=== PATIENT | male | born 1990 | race Caucasian/White ===

== ENCOUNTER → 2018-10-05 06:11 | Outpatient (CLI) | payer MEDICARE, MEDICAID, SELFPAY ==
--- NOTE | 2018-10-05 06:46 | MRI_ITS ---
STUDY: MRI LUMBAR SPINE WITHOUT CONTRAST REASON FOR EXAM: Male, 28 years old. sciatica, RADIATES DOWN L LEG TECHNIQUE: Standardized fat and water weighted pulse sequences were obtained in the sagittal and axial planes. COMPARISON: May 01, 2010 FINDINGS: T12-L1: Normal endplates. Normal disc height, hydration and morphology. Normal bilateral facet joints. Normal central canal and bilateral lateral recesses. Normal bilateral intervertebral neural foramina. Normal lumbar lordosis. There is no substantial scoliosis. Normal conus medullaris that terminates at the L1 L1-2: There is minimal disc space narrowing and endplate spondylosis. There is no significant disc herniation, central canal or foraminal stenosis. L2-3: Normal endplates. Normal disc height, hydration and morphology. Normal bilateral facet joints. Normal central canal and bilateral lateral recesses. Normal bilateral intervertebral neural foramina. L3-4: Normal endplates. Normal disc height, hydration and morphology. Normal bilateral facet joints. Normal central canal and bilateral lateral recesses. Normal bilateral intervertebral neural foramina. L4-5: There is minimal disc space narrowing and endplate spondylosis. There is no significant disc herniation, central canal or foraminal stenosis. L5-S1: There is mild disc space narrowing and endplates spondylosis. There is new left paracentral protrusion with severe left lateral recess narrowing. There is minimal central canal stenosis there is no foraminal stenosis. Normal visualized sacral ala. Normal visualized paraspinous soft tissue structures. MRI/Spine Lumbar (Routine) IMPRESSION: L5/S1: Disc protrusion with severe left lateral recess narrowing. Electronically Signed: Gail Pena MD at 8:07 EST Tel , Service support ,
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
== END ==
PROVIDERS: Family Provider Family Medicine; PCP Family Medicine
DX: M54.32 Sciatica, left side (principal); M51.37 Other intervertebral disc degeneration, lumbosacral region
CPT/HCPCS: 72148

== ENCOUNTER → 2020-06-22 17:17 | Outpatient (CLI) | payer MEDICARE, SELFPAY ==
--- NOTE | 2020-06-22 17:24 | MRI_ITS ---
STUDY: MRI LUMBAR SPINE WITHOUT CONTRAST REASON FOR EXAM: Male, 30 years old. L sciatica pain, h/o prior microdiscectomy, back pain TECHNIQUE: Standardized fat and water weighted pulse sequences were obtained in the sagittal and axial planes. COMPARISON: None FINDINGS: T12-L1: Normal endplates. Normal disc height, hydration and morphology. Normal bilateral facet joints. Normal central canal and bilateral lateral recesses. Normal bilateral intervertebral neural foramina. Normal lumbar lordosis. There is no substantial scoliosis. Normal conus medullaris that terminates at T12-L1 L1-2: Normal endplates. Normal disc height, hydration and morphology. Normal bilateral facet joints. Normal central canal and bilateral lateral recesses. Normal bilateral intervertebral neural foramina. L2-3: Normal endplates. Normal disc height, hydration and morphology. Normal bilateral facet joints. Normal central canal and bilateral lateral recesses. Normal bilateral intervertebral neural foramina. L3-4: Normal endplates. Normal disc height, hydration and minimal annular bulge.. Normal bilateral facet joints. Normal central canal and bilateral lateral recesses. Normal bilateral intervertebral neural foramina. L4-5: Normal endplates. Normal disc height, hydration and minimal annular bulge.. Normal bilateral facet joints. Normal central canal and bilateral lateral recesses. Normal bilateral intervertebral neural foramina. L5-S1: Normal endplates. Normal disc height, desiccation and mild annular bulge with prominent left paracentral/posterolateral disc extrusion with posterior superior extension of disc fragment. Normal bilateral facet joints. Normal central canal. Severe left lateral recess stenosis. Mild bilateral neural foraminal encroachment Normal visualized sacral ala. Normal visualized paraspinous soft tissue structures. MRI/Spine Lumbar (Routine) IMPRESSION: Spinal stenosis at L5-S1 greater on the left secondary to prominent left paracentral/posterolateral disc extrusion. Minimal bulging of the annuli at L3-4 and L4-5 without spinal stenosis Electronically Signed: Johan Contreras MD at 20:00 EDT , Service support ,
== END ==
LOC: MRI 17:19
PROVIDERS: PCP Family Medicine; Referring Provider Anesthesiology Pain Medicine; Visit Provider Anesthesiology Pain Medicine
DX: M54.9 Dorsalgia, unspecified (principal)
CPT/HCPCS: 72148

== ENCOUNTER 2020-08-18 09:24 | Inpatient (IN) | payer MEDICARE, SELFPAY ==
[2020-06-26 11:08] VITALS: BMI 29.7
--- NOTE | 2020-08-10 09:38 | EKG12_ITS ---
Test Reason : PRE OP Blood Pressure : / mmHG Vent. Rate : 075 BPM Atrial Rate : 075 BPM P-R Int : 156 ms QRS Dur : 084 ms QT Int : 366 ms P-R-T Axes : 028 -08 023 degrees QTc Int : 408 ms Normal sinus rhythm with sinus arrhythmia Low voltage QRS Borderline ECG Confirmed by BLAYNE ASH, HAI ([id number]), visual effects editor TESS LUTHER ([id number]) on 08/11/2020 9:09:47 AM Referred By: YASMINE Confirmed By:HAI CISNEROS MD
[2020-08-10 10:17] LABS: Absolute Lymphocyte Count 2.29 X10^3/uL (0.83-4.51); Absolute Neutrophil Count 4.8 X10^3/uL (2.0-7.7); Basophil# 0.04 X10^3/uL; Basophil% 0.5 % (0-1); Eosinophil# 0.32 X10^3/uL; Eosinophils% 3.7 % (0-5); Hematocrit 49.3 % (40-54); Hemoglobin 16.2 g/dL (13.0-16.5); Lymphocyte # 2.29 X10^3/ul (4.0); Lymphocyte % 26.7 % (19-41); Mean Corp Hgb Conc 32.9 g/dL (32-36); Mean Corpuscular Hgb 30.3 pg (27.0-32.0); Mean Corpuscular Volume 92.3 fL (80-94); Mean Platelet Vol. 9.3 fl (6.2-12.0); Monocyte# 1.08 X10^3/uL; Monocyte% 12.6 % (0-10); NRBC Flagged by Analyzer 0 % (0-5); Neutrophil # 4.82 X10^3/uL (2.7-7.7); Neutrophil % 56.3 % (47-70); Platelet Count 299 K/mm3 (150-450); RBC Distribution Width CV 12.8 % (11.6-14.6); RBC Distribution Width SD 43.2 fl (35.1-43.9); Red Blood Count 5.34 M/mm3 (4.6-6.2); White Blood Count 8.6 K/mm3 (4.4-11.0)
[2020-08-10 10:54] LABS: Magnesium 2.5 mg/dL (1.6-2.6)
[2020-08-10 11:03] LABS: Anion Gap 6 (5-15); BUN 14 mg/dL (7-18); BUN/Creat Ratio 12.5 RATIO (10-20); Calcium,Total 8.9 mg/dL (8.5-10.1); Chloride 106 mmol/L (98-107); Creatinine, Serum 1.12 mg/dL (0.70-1.30); EST Glomerular Filtration Rate 81 mL/min (>60); Est Glom Filt Rate - Afr Amer 98 mL/min (>60); Glucose 60 mg/dL (74-106); Potassium 3.7 mmol/L (3.5-5.1); Sodium Level 141 mmol/L (136-145)
[2020-08-10 11:25] LABS: HIV - WCH Non-Reactive (Nonreactive)
[2020-08-11 08:17] LABS: HEPATITIS B SURFACE AG Negative (Negative); Hepatitis A AB, Total Negative (Negative); Hepatitis A IgM Antibody Negative (Negative); Hepatitis B Core AB IgM Negative (Negative); Hepatitis B Core Ab Total Negative (Negative); Hepatitis C Ab <0.1 s/co ratio (0.0-0.9)
[2020-08-11 18:20] LABS: Hep B Surface Antibodies Reactive (.)
[2020-08-18] VITALS (9 sets, daily range): BP systolic 108–134; BP diastolic 68–90; PULSE 56–86; RESP 14–18; TEMP 36–36.9; O2SAT 95–100; BMI 30.7; BMI 30.6
[2020-08-18] MEDS: Acetaminophen 500 MG Tablet 1000 MG PO (10:13)
[2020-08-18] MEDS: Lactated Ringers 1,000 ML 100 ML IV ×2 (10:15→22:00)
[2020-08-18 10:25] LABS: Bedside Glucose 148 mg/dL (70-110)
--- NOTE | 2020-08-18 11:31 | PCM.HP.STD ---
History of Present Illness Date of Admission: 08/18/20 Intake Intake Visit Reasons: low back Accompanied by: Self Is patient in pain?: Yes Pain scale (1-10): 6 Allergies venom-honey bee Allergy (Severe, Verified 08/10/20 08:05) Anaphylaxis fentanyl Allergy (Verified 08/10/20 08:05) Hives ketorolac [From Toradol] Allergy (Verified 08/10/20 08:05) Hives Medications clonazepam 0.5 mg tablet 0.5 mg PO PRN PRN 06/26/20 [History Confirmed 08/10/20] famotidine 20 mg tablet 20 mg PO DAILY 06/26/20 [History Confirmed 08/10/20] hydrocodone 5 mg-acetaminophen 325 mg tablet 1 ea PO BID 06/26/20 [History Confirmed 08/10/20] PFSH Medical History Rotator cuff arthropathy of right shoulder (Acute) h/o appendectomy (Acute) h/o face surgery (Acute) h/o jaw surgery (Acute) h/o left femur tracy (Acute) Surgical History H/O eye surgery (Acute) H/O hernia repair (Acute) H/O left knee surgery (Acute) H/O microdiscectomy (Acute) Family History Sister Cancer Uncle Cancer Grandmother Diabetes Social History (Updated 08/10/20 @ 08:[address] Nikita Coulter, DO) household members: other details: mother number of children: 1 Smoking Status: Former smoker alcohol intake: never what type of physical activity do you participate in: bicycling do you feel safe at home: Yes HPI low back: Details: Ramon returns for his preop prior to his surgery next Monday. That is 8 days from now. with a repeat laminectomy at the L5-S1 level on the left side He knows that he is scheduled for 360 degree fusion where he has recurrent disc herniation. how many days he would be in the hospital etc. I explained the surgery with him at length including what to expect We spoke of possible risks and complications of moderate among those possibility of coma paralysis infection meningitis failure to relieve the symptoms blood clot in the legs blood clot in the lungs microinfarction stroke damage to major vessels damage to viscus structures in the abdomen retrograde ejaculation damage to ureters among others he understood all possible risks and complications he voluntarily signed the operative permit.Parts of this documentation were recorded by a scribe, this documentation accurately reflects the service provided and the decisions made by me, Dr. Nikita Coulter, DO 08/10/20 0803. RAMON GARCIA is a 30 year old M here today for his pre-op appointment to sign surgery consents. Patient reports 6/10 pain from the pain scale. Denies numbness, tingling or other associated symptoms. Patient reports weakness with his left foot and walking/ambulation is slightly difficult but not using his cane. Reviewed the pre-operative plans with the patient. Risks and benefits of the procedure were fully explained, including but not limited to infection, neurovascular injury, continued pain, arthritis, stiffness, need for further surgery, re-injury, DVT, PE, general risks of anesthesia, and loss of limb or life. The patient understands all the risks and does wish to proceed with written consent. ROS Const Reports system reviewed and no additional complaints, except as docu, Denies chills, Denies fatigue, Denies fever(s) Card Reports system reviewed and no additional complaints, except as docu, Denies chest pain, Denies shortness of breath Resp Denies shortness of breath Musc Reports system reviewed and no additional complaints, except as docu, Reports abnormal walking, Reports joint pain, Denies numbness, Reports stiffness, Denies tingling Skin/Breast Reports system reviewed and no additional complaints, except as docu, Denies dry skin, Denies redness, Denies lesions, Denies new lesions, Denies non-healing lesions, Denies itching, Denies rash, Denies skin ulcer, Denies sores, Denies wounds Neuro Yes abnormal walking, No numbness, No tingling Endo Denies fatigue Past Medical History Medical History: Medical History (Last Reviewed 08/10/20 @ 08:07 by Rachael Gotti) Rotator cuff arthropathy of right shoulder M12.811 h/o appendectomy h/o face surgery x4 h/o jaw surgery x2 h/o left femur tracy Allergies venom-honey bee Allergy (Severe, Verified 08/18/20 10:04) Anaphylaxis fentanyl Allergy (Verified 08/18/20 10:04) Hives ketorolac [From Toradol] Allergy (Verified 08/18/20 10:04) Hives Home Medications: Ambulatory Orders Medication Instructions Recorded clonazepam 0.5 mg tablet 0.5 mg PO PRN PRN 06/26/20 famotidine 20 mg tablet 20 mg PO DAILY 06/26/20 hydrocodone 5 mg-acetaminophen 325 1 ea PO BID 06/26/20 mg tablet Surgical History: Surgical History (Last Reviewed 08/10/20 @ 08:07 by Rachael Gotti) H/O eye surgery Z98.890 x3 H/O hernia repair Z98.890, Z87.19 x2 H/O left knee surgery Z98.890 x5 H/O microdiscectomy Z98.890 1-5 51 Smoking Status: Never smoker Tobacco Use: Non-smoker - *Family History Paternal Family History: Family History (Last Reviewed 08/18/20 @ 11:[address] Nikita Coulter, DO) Sister Cancer Uncle Cancer Grandmother Diabetes VTE Information - Inpt Only VTE Present on Admission: No - Physical Exam Vitals/I&O's: Vital Signs Temp Pulse Resp BP Pulse Ox 97.2 F L 58 L 16 134/90 H 100 08/18/20 10:05 08/18/20 10:05 08/18/20 10:05 08/18/20 10:05 08/18/20 10:05 Oxygen Delivery Method Room Air Weight: 202 lb 2.622 oz Body Mass Index (BMI) 30.7 Laboratory Results 08/18/20 10:02: POC Glucose 148 H Current Medications Cefazolin Sodium 2 gm/ Sodium (Chloride) 110 mls @ 150 mls/hr IV PREOP ONE Stop: 08/18/20 12:13 Magnesium Sulfate 2.75 gm/ (Sodium Chloride) 105.5 mls @ 211 mls/hr IV X1 ONE Stop: 08/18/20 11:59 Last Admin: 08/18/20 10:13 Dose: 211 mls/hr Documented by: Lactated Ringer's () 1,000 mls @ 100 mls/hr IV .Q10H DALIA Last Admin: 08/18/20 10:15 Dose: 100 mls/hr Documented by: Insulin Human Lispro (Insulin Lispro 100 Unit/Ml Insuln.Pen) 1 - 6 unit SC Q4H PRN PRN; Protocol PRN Reason: BG>/= 180, SEE PROTOCOL Stop: 08/18/20 17:30 Assessment/Plan I have re-examined the patient. There are no clinical changes since date of exam.
[2020-08-18] MEDS: Cefazolin 2 GM in 0.9% Normal Saline 100 ML IV (12:28)
[2020-08-18] MEDS: Heparin 10,000 UNITS/10 ML Vial 10000 UNITS ×2 (13:01)
--- NOTE | 2020-08-18 13:50 | RAD_ITS ---
STUDY: X-RAY - LUMBAR SPINE REASON FOR EXAM: Male, 30 years old. L5-S1 FUSION, LAMINECTOMY. TECHNIQUE: 4 view(s) of the lumbar spine were obtained. COMPARISON: None FINDINGS: Intraoperative x-rays of the lumbar spine demonstrate anterior fixation of L5-S1 with disc spacer. There is also posterior fixation at this level on the last image. RAD/Spine 1 View Any Level IMPRESSION: Intraoperative radiographs of the lumbar spine demonstrate status post anterior and posterior fixation of L5-S1 with disc spacer. Electronically Signed: René Ruiz, at 0:51 EDT Tel , Service support ,
--- NOTE | 2020-08-18 15:06 | OP.PCM_ITS ---
Report of Operation Date of Procedure: 08/18/20 Description of Surgical Findings:: Preoperative diagnosis: Current disc herniation L5-S1 with severe left S1 radiculopathy intractable pain and instability Postoperative diagnosis: Same The procedure: Anterior lumbar interbody fusion with insertion of cage and internal fixation L5-S1 Cosurgeons: Dr. Coulter and Dr. Olivares Anesthesia: Dr. Angela EBL:75cc plus 40cc for stem cells Complications: None Patient was taken to the OR where he was placed in the supine position on the operating table he was placed under general anesthesia after appropriate positioning of the right iliac crest seeing a [employer] needle I was able to obtain 40 cc of BMA. This the abdomen was prepped and draped in standard fashion. The surgical approach is then described in Dr. Olivares's operative summary. Once Dr. Olivares expose the L5-S1 space we took an intraoperative x-ray with a needle marker in place to assure that we were indeed at L5-S1 which we were. With good exposure of the L5-S1 disc I then took a long knife and removed the anterior annulus of L5-S1. I then used pituitary rongeurs to remove more disc when that from within the disc space. Used curettes both the bowl type and ring curettes. These were used to remove all the cartilage off both endplates. Then used a girish bur to bur the sides to make them level with the center. Thus I removed some bone on the lateral side of the top of S1 and at the bottom of L5. Then used our trial ages and we have ended up using a 25 x 35 mm a 12 mm high cage. Used a rasp to rasp both endplates. Cage was then filled with spongy bone allograft the spongy bone was then soaked in the patient's concentrated stem cells. Cage was then tamped into place in the center sunk approximately 3 mm. This I cauterized the anterior longitudinal ligament just above and just below the disc space enough for the position of the plate. A 3 mm plate was then centered in place while I punched the first of 4 holes to into S1-2 into L5 by insertion of self-tapping 30 mm screws of at 5 and 25 mm screws at S1. Thoroughly irrigated. The closure of the wound is then described in Dr. Olivares's operative summary.
--- NOTE | 2020-08-18 15:17 | PCM.OPRPT ---
Report of Operation Date of Procedure: 08/18/20 - Surgeon: Dr. Coulter co-surgeon: Dr. [place] Olivares Pre-Operative Diagnosis: Degenerative disc disease Post-Operative Diagnosis: The same Surgery/Procedure Performed:: 1. Anterior lumbar interbody fusion L5-S1 Type of Anesthesia:: General Description of Procedure: Patient brought to the operating room. Appropriate monitoring lines were placed. Patient was underwent general anesthesia. Given the prep antibiotics. Prepped and draped in a sterile fashion. We then made incision in the left lower quadrant. Dissected down onto the anterior fascia. Excised along the fascia medially just past midline and then out past the rectus into the obliques. We then raised the flap superior and inferior of the anterior rectus sheath. We then got lateral to the rectus and into the retroperitoneal plane. We put in a Bookwalter retractor. I was able to retract this to the right and superior using blunt dissection got into the retroperitoneal plane onto the disc space of L5-S1. Middle sacral vein was divided between clips none there is separate branch divided between clips. We able to mobilize the vein a little bit superior and lateral. We confirm that we are in the L5-S1 disc base. Patient then underwent the discectomy with Dr. Coulter. Plate was placed on top with 4 screws. Did a completion x-ray confirming good position of this. We released the retractor there is no bleeding. We then closed the fascia with 1 PDS. And then Vicryl in layers and Monocryl for the skin. Dermabond was placed. Patient was then going to be flipped over and undergo the separate posterior surgery.
[2020-08-18] MEDS: THROMBIN (RECOMBINANT) 20,000 UNIT VIAL 20000 UNIT TOPICAL (15:30)
--- NOTE | 2020-08-18 18:39 | PCM.OPRPT ---
Report of Operation Date of Procedure: 08/18/20 Description of Surgical Findings:: Preoperative diagnosis: Herniated disc L5-S1 with severe left S1 radiculopathy intractable pain and instability Postoperative diagnosis: The same Procedure was repeat laminectomy L5-S1 with bilateral lateral fusion L5-S1 and internal segmental fixation L5-S1 Surgeon [address]. Coulter psychological assistant was New POE Anesthesia: [facility] Drains: Medium Hemovac drain was inserted Estimated blood loss: Less than 30 cc Complications: None Once the anterior surgery was done we then moved the patient to a Eris frame on the operating table and put him in the prone position after appropriate positioning with care to protect his bony prominences the genitalia the brachial plexus bilaterally the ulnar nerves of both elbows facial features was prepped and draped in standard fashion I then made an incision near the old incision in the midline. Cutaneous tissues were incised the length of of the skin incision. Open lumbar fascia first to the left of the spinous processes using cautery and elevated them off the lamina of 5 in the lamina of S1 great care was taken in the area of the old laminectomy at L5-S1. A Jane retractor was put in place. Then used small curettes to start releasing the adhesions from the side of the old laminectomy and from the top of the S1 lamina. I then used 45 degree Kerrison rongeurs to enlarge the laminectomy site of L5 also removed the top of the S1 lamina and followed the S1 nerve root out its foramen and performed medial facetectomy with an osteotome thus finishing the opening enlargement. Then slowly started releasing adhesions with pin corrigan until it had enough space to put a nerve root retractor in place. Care of the disc was evident that has some scar tissue over the top of it I simply used a blade to cut that opposing the protruded disc. Using pituitary rongeurs I then removed the one large fragment. A few more smaller pieces and between. We were able to observe the cage at the L5-S1 disc space. Completely decompressed the base of the S1 nerve root. In this I opened the opposite side the right side by elevating the paravertebral muscles off the lamina of of the L5 in the lamina of S1 slide retractors were then put in place giving us good access thorough irrigation was carried out repeatedly in the course of the case every 10 to 15 minutes. Then prepared to the lamina by using a bur to bur the lamina 5 and the lamina of S1 on both sides. And removed the interspinous ligament between L5 and S1. He had a large size spinous process of S1 a bit unusual. Burred the bases down for the spacer. Used a spacer graft of 16 mm. We laid the spongy bone down on the lamina on both sides but by insertions of the amniotic membrane directly over the laminectomy site. This prevents adhesions. On this we were able to apply the [place] device between the spinous process of S1 and spinous process of L5. Once in place we then clamped down applied the locking mechanism. Put a medium Hemovac in place and began closure. Lumbar fascia was used to [id number] suture with #1 Vicryl followed by closure of the subcutaneous tissues with 3-0 Vicryl and 2-0 Vicryl in interrupted fashion. Skin was approximated using skin clips. Sterile dressings were then applied. The patient was then recovered in the OR taken to recovery in satisfactory condition.
--- NOTE | 2020-08-18 20:23 | PCM.CONS.GEN ---
Problem List (1) Disc herniation Status: Acute Reason for Consult Date of Consultation: 08/18/20 Reason for Consultation: Medical management History of Present Illness: The patient is a 30 year old M with a significant history of former tobacco abuse; GERD; and disc herniation L5-S1 with severe left S1 radiculopathy intractable pain and instability s/p repeat laminectomy L5-S1 with bilateral lateral fusion L5-S1 and internal segmental fixation L5-S1 post op day one for which internal services been consulted for medical management. Patient reports pain at incision site of his back. Also he thinks that his fingers are mildly cyanotic. Past Medical History Medical History: Medical History (Last Reviewed 08/18/20 @ 21:[address] Vasyl Shelton MD) Rotator cuff arthropathy of right shoulder M12.811 h/o appendectomy h/o face surgery x4 h/o jaw surgery x2 h/o left femur tracy Allergies venom-honey bee Allergy (Severe, Verified 08/18/20 10:04) Anaphylaxis fentanyl Allergy (Verified 08/18/20 10:04) Hives ketorolac [From Toradol] Allergy (Verified 08/18/20 10:04) Hives Home Medications: Ambulatory Orders Medication Instructions Recorded clonazepam 0.5 mg tablet 0.5 mg PO PRN PRN 06/26/20 famotidine 20 mg tablet 20 mg PO DAILY 06/26/20 hydrocodone 5 mg-acetaminophen 325 1 ea PO BID 06/26/20 mg tablet Surgical History: Surgical History (Last Reviewed 08/18/20 @ 20:[address] Vasyl Shelton MD) H/O eye surgery Z98.890 x3 H/O hernia repair Z98.890, Z87.19 x2 H/O left knee surgery Z98.890 x5 H/O microdiscectomy Z98.890 1-5 51 Smoking Status: Former smoker Tobacco Use: Non-smoker - *Family History Paternal Family History: Family History (Last Reviewed 08/18/20 @ 20:[address] Vasyl Shelton MD) Sister Cancer Uncle Cancer Grandmother Diabetes Review of Systems Constitutional: Denies: Chills, Fever, Weight Change HEENT: Denies: Head Aches, Sinus Congestion, Sinus Drainage Cardiovascular: Denies: Chest Pain, Palpitations Respiratory: Denies: Cough, Shortness of breath at rest, Sputum production Gastrointestinal: Denies: Abdominal Pain, Nausea, Vomiting Genitourinary: Denies: Dysuria Musculoskeletal: Reports: Back Pain. Denies: Neck Pain, Shoulder Pain Skin: Denies: Rash, Wounds Neurological: Denies: Numbness, Tingling, Focal weakness Psychiatric: Denies: Anxiety, Depression, Homicidal Ideations, Suicidal Ideations Hematologic/ Lymphatic: Denies: Easy Bruising, Easy Bleeding Patient Problems: Active and Suspected Problems (Last Reviewed 08/18/20 @ 20:[address] Vasyl Shelton MD) Disc herniation (Acute) - Physical Exam Vitals/I&O's: Vital Signs Temp Pulse Resp BP Pulse Ox 97.4 F L 66 18 130/89 H 100 08/18/20 20:18 08/18/20 20:18 08/18/20 20:18 08/18/20 20:18 08/18/20 20:18 Oxygen Flow Rate (L/min) 6 Oxygen Delivery Method Simple Mask Weight: 91.7 kg Body Mass Index (BMI) 30.7 Intake and Output for Last 24 Hours 08/16/20 08/17/20 08/18/20 23:59 23:59 23:59 Intake Total 110 / 110 Output Total 537 / 537 Balance -427 / -427 General: Alert, Oriented x3, Cooperative HEENT: Atraumatic, PERRLA, EOMI, Normocephalic Neck: Supple, No JVD, Negative Carotid Bruits Lungs: Clear to auscultation, Normal air movement Cardiovascular: Regular rate, Normal S1, Normal S2, No murmurs Abdomen: Bowel Sounds Present, Soft, Non Tender, - - Dry dressing on lower abdomen. Extremities: Tenderness - On middle to lower back, - - Dry dressing in place. ROSA with sanguinous drainage Skin: - - pale bilateral hands and mild cyanosis around bilateral fingers Musculoskeletal: Tenderness - middle to lower back Neurological: Cranial nerves II-XII grossly intact Psych/Mental Status: Normal Affect, Appropriate Laboratory Results 08/18/20 10:02: POC Glucose 148 H 08/18/20 11:50: Blood Type A POSITIVE, Antibody Screen NEGATIVE Current Medications Diazepam (Diazepam 5 Mg Tablet) 5 mg PO Q6H PRN PRN PRN Reason: Muscle Spasms Enteral Nutritional Formula (Ensure Surgery 237 Ml Liquid) 237 ml PO TIDCM [facility] Famotidine (Famotidine 20 Mg Tablet) 20 mg PO BID [facility] Lactated Ringer's () 1,000 mls @ 100 mls/hr IV .Q10H [facility] Last Admin: 08/18/20 10:15 Dose: 100 mls/hr Documented by: Cefazolin Sodium () 1 gm in 50 mls @ 100 mls/hr IV Q8H [facility] Stop: 08/19/20 06:29 Morphine Sulfate (Morphine 4 Mg/Ml Syringe) 2 - 4 mg IV Q2H PRN PRN PRN Reason: Pain Score 6-10 Ondansetron HCl (Ondansetron 4 Mg/2 Ml Vial) 4 mg IV Q8H PRN PRN PRN Reason: NAUSEA Senna/Docusate Sodium (Senna/Docusate Sodium 1 Tablet) 2 tablet PO BID [facility] Zolpidem Tartrate (Zolpidem Tartrate 5 Mg Tablet) 5 mg PO QHS PRN PRN PRN Reason: INSOMNIA Assessment/Plan All Active Problems (Last Reviewed 08/18/20 @ 20:[address] Vasyl Shelton MD) Disc herniation (Acute) severe left S1 radiculopathy intractable pain and instability s/p repeat laminectomy L5-S1 with bilateral lateral fusion L5-S1 and internal segmental fixation L5-S1 post op day one On Valium po as needed, and morphine IV as needed. Bowel protocol and antiemetics in place. Preoperative cefazolin. With incentive spirometer at bedside; counselled to use it. Consult to leave bilateral hands in dependent position Management by primary. GERD On Protonix. DVT Prophylaxis With thigh-high МАРИНА guerra and SCD. Thank you for your consult. Internal Medicine service will continue to follow. Office Visits / Consults: [id number] IP Consult L1
[2020-08-18] MEDS: Morphine 4 MG/ML Syringe IV ×2 (20:59→23:46)
[2020-08-18] MEDS: Ondansetron 4 MG/2 ML Vial IV (21:06)
[2020-08-18] MEDS: Senna/Docusate Sodium 1 Tablet 2 TABLET PO (22:01)
[2020-08-18] MEDS: Famotidine 20 MG Tablet PO (22:02)
[2020-08-18] MEDS: Cefazolin 1 GM/50 ML BAG IV (22:02)
[2020-08-19 00:28] VITALS: BP 132/85; PULSE 102; RESP 18; TEMP 36.9; O2SAT 96
[2020-08-19] MEDS: Morphine 4 MG/ML Syringe IV ×6 (01:13→19:24)
[2020-08-19 03:25] VITALS: BP 137/84; PULSE 99; RESP 18; TEMP 37.1; O2SAT 96
[2020-08-19] MEDS: Cefazolin 1 GM/50 ML BAG IV (05:45)
[2020-08-19] MEDS: 0.9% Saline Lock 10 ML Syringe IV ×3 (06:29→19:24)
--- NOTE | 2020-08-19 09:08 | PCM.PN.HOSP ---
Patient Problems: Active and Suspected Problems (Last Reviewed 08/18/20 @ 21:[address] Vasyl Shelton MD) Disc herniation (Acute) Subjective: Increased pain in back and abdomen. Vitals/I&O's: Vital Signs Temp Pulse Resp BP Pulse Ox 37.1 C 99 18 137/84 H 96 08/19/20 03:25 08/19/20 03:25 08/19/20 03:25 08/19/20 03:25 08/19/20 03:25 Oxygen Flow Rate (L/min) 6 Oxygen Delivery Method Room Air Weight: 91.7 kg Body Mass Index (BMI) 30.6 Intake and Output for Last 24 Hours 08/17/20 08/18/20 08/19/20 23:59 23:59 23:59 Intake Total 1765.5 / 1765.5 1605 / 1605 Output Total 937 / 937 1850 / 1850 Balance 828.5 / 828.5 -245 / -245 General: Alert, No apparent distress HEENT: Atraumatic, Normocephalic Oral: Moist Mucosa, No Gingival or Mucosal Lesions/ Ulcerations Neck: No Nodes, Thyroid Normal Size and Texture Lungs: Clear to auscultation, Normal air movement, No rhonchi, No wheeze, No rales Cardiovascular: Regular rate, Regular Rhythm, Normal S1, Normal S2, No murmurs Abdomen: Bowel Sounds Present, Soft, Non Tender, Non-Distended, No Hepato-splenomegaly Laboratory Results 08/18/20 10:02: POC Glucose 148 H 08/18/20 11:50: Blood Type A POSITIVE, Antibody Screen NEGATIVE Current Medications Diazepam (Diazepam 5 Mg Tablet) 5 mg PO Q6H PRN PRN PRN Reason: Muscle Spasms Enteral Nutritional Formula (Ensure Surgery 237 Ml Liquid) 237 ml PO TIDCM [facility] Last Admin: 08/18/20 21:50 Dose: Not Given Documented by: Famotidine (Famotidine 20 Mg Tablet) 20 mg PO BID [facility] Last Admin: 08/18/20 22:02 Dose: 20 mg Documented by: Lactated Ringer's () 1,000 mls @ 100 mls/hr IV .Q10H [facility] Last Infusion: 08/19/20 06:33 Dose: 0 mls/hr Documented by: Sodium Chloride () 250 mls @ 15 mls/hr IV .[id number] PRN PRN Reason: Additional IVPB Infusion Lidocaine HCl (Lidocaine 2% Viscous 15 Ml Udc) 5 ml PO Q3H PRN PRN Reason: SORE THROAT Morphine Sulfate (Morphine 4 Mg/Ml Syringe) 2 - 4 mg IV Q2H PRN PRN PRN Reason: Pain Score 6-10 Last Admin: 08/19/20 05:45 Dose: 2 mg Documented by: Ondansetron HCl (Ondansetron 4 Mg/2 Ml Vial) 4 mg IV Q8H PRN PRN PRN Reason: NAUSEA Last Admin: 08/18/20 21:06 Dose: 4 mg Documented by: Senna/Docusate Sodium (Senna/Docusate Sodium 1 Tablet) 2 tablet PO BID [facility] Last Admin: 08/18/20 22:01 Dose: 2 tablet Documented by: Sodium Chloride (0.9% Saline Lock 10 Ml Syringe) 10 - 40 ml IV UD PRN PRN Reason: SALINE FLUSH Last Admin: 08/19/20 06:29 Dose: 10 ml Documented by: Throat Lozenges (Benzocaine/Menthol 1 Lozenge) 2 lozenge MUCOUS MEM Q2H PRN PRN PRN Reason: SORE THROAT Zolpidem Tartrate (Zolpidem Tartrate 5 Mg Tablet) 5 mg PO QHS PRN PRN PRN Reason: INSOMNIA Medical Necessity - Tobacco Use Smoking Status: Former smoker Tobacco Use: Non-smoker Assessment/Plan All Active Problems (Last Reviewed 08/18/20 @ 21:[address] Vasyl Shelton MD) Disc herniation (Acute) 1. GERD: PPI 2. s/p laminectomy L5-S1 with fusion: Mgmt per spine No active medical issues at present. Inpatient E&M: 15224 Subs Hosp L1
[2020-08-19 10:47] VITALS: BP 129/77; PULSE 123; RESP 18; TEMP 37.7; O2SAT 98
[2020-08-19] MEDS: Senna/Docusate Sodium 1 Tablet 2 TABLET PO ×2 (10:51→21:47)
[2020-08-19] MEDS: BENZOCAINE/MENTHOL 1 LOZENGE 2 LOZENGE MUCOUS MEM (10:51)
[2020-08-19] MEDS: Famotidine 20 MG Tablet PO ×2 (10:52→21:47)
--- NOTE | 2020-08-19 11:45 | CASEMGMT ---
RN CM Face to Face with patient for initial transition planning/care coordination assessment. RN CM introduced self and role at [facility]. Patient lying in bed, alert and oriented. Patient willing to participate in assessment and is able to answer all questions appropriately. Care providers, pharmacy, and demographics verified. Patient wishes to discharge home, denies need for home health at this time. Patient states he has no further needs or concerns at this time. CM to follow for discharge planning needs that may arise. PCP: Isra Specialists: Romero, pain; Yfn, spinal surgeon Preferred Pharmacy: [facility] Insurance: [facility] Prescription Benefit: yes Living Will/HPOA: none LNOK: Mother, father Living Arrangements: Patient lives with mother in single story home with 1 step to enter the home. Patient states he was independent at home prior to surgery Transportation: Father DME/HHC: Patient states he has cane and walker at home. Patient denies previous HHC Disposition Plan: Patient to discharge home with family support and follow-up plans in place. Marti ABEBE, RN, CM
--- NOTE | 2020-08-19 12:48 | PCM.PN.BLA ---
Progress Note Patient is seen on rounds. Dates that his leg pain is completely gone. Ok informed me that he has been walking the halls with assistance. Has some bowel sounds but they are not real strong. 80 cc out of his Hemovac. We will leave it in 1 more day and remove it tomorrow. His dressings are dry. Neurologically he is intact. Pleased with his progress. STROKE Vital Signs/Narrative: Vital Signs Temp Pulse Resp BP Pulse Ox 08/19/20 10:47 99.9 F H 123 H 18 129/77 H 98
[2020-08-19] MEDS: HYDROcodone Bitartrate/Apap 5/325 Tablet PO ×3 (13:28→23:36)
[2020-08-19 14:06] VITALS: BP 117/67; PULSE 107; RESP 18; TEMP 37.4; O2SAT 97
[2020-08-19 20:02] VITALS: BP 126/71; PULSE 107; RESP 18; TEMP 37.6; O2SAT 96
[2020-08-20] MEDS: Morphine 4 MG/ML Syringe IV ×3 (01:30→14:02)
[2020-08-20] MEDS: 0.9% Saline Lock 10 ML Syringe IV ×4 (01:32→14:02)
[2020-08-20 02:20] VITALS: BP 112/78; PULSE 111; RESP 18; TEMP 37.7; O2SAT 94
[2020-08-20] MEDS: Ondansetron 4 MG/2 ML Vial IV (03:53)
[2020-08-20] MEDS: HYDROcodone Bitartrate/Apap 5/325 Tablet PO ×4 (04:38→21:26)
[2020-08-20] MEDS: Senna/Docusate Sodium 1 Tablet 2 TABLET PO ×2 (09:29→21:26)
[2020-08-20] MEDS: Famotidine 20 MG Tablet PO ×2 (09:29→21:26)
[2020-08-20 09:30] VITALS: BP 132/83; PULSE 128; RESP 18; TEMP 36.4; O2SAT 98
[2020-08-20 09:34] VITALS: PULSE 129
--- NOTE | 2020-08-20 10:05 | PN_ITS ---
Patient Problems: Active and Suspected Problems (Last Reviewed 08/18/20 @ 21:[address] Vasyl Shelton MD) Disc herniation (Acute) Subjective: Complaining of abdominal pain and nausea. Having some BM, but small. Cannot strain given the surgery. Vitals/I&O's: Vital Signs Temp Pulse Resp BP Pulse Ox 36.4 C L 129 H 18 132/83 H 98 08/20/20 09:30 08/20/20 09:34 08/20/20 09:30 08/20/20 09:30 08/20/20 09:30 Oxygen Flow Rate (L/min) 6 Oxygen Delivery Method Room Air Weight: 91.7 kg Body Mass Index (BMI) 30.6 Intake and Output for Last 24 Hours 08/18/20 08/19/20 08/20/20 23:59 23:59 23:59 Intake Total 1765.5 / 1765.5 3405 / 3405 1000 / 1000 Output Total 937 / 937 3210 / 3210 805 / 805 Balance 828.5 / 828.5 195 / 195 195 / 195 General: Alert, No apparent distress HEENT: Atraumatic, Normocephalic Oral: Moist Mucosa, No Gingival or Mucosal Lesions/ Ulcerations Neck: No Nodes, Thyroid Normal Size and Texture Lungs: Clear to auscultation, Normal air movement, No rhonchi, No wheeze, No rales Cardiovascular: Regular rate, Regular Rhythm, Normal S1, Normal S2, No murmurs Abdomen: Bowel Sounds Present, Soft, Non Tender, Non-Distended, No Hepato- splenomegaly Extremities: No edema, No Calf Tenderness Current Medications Hydrocodone Bitart/Acetaminophen (Hydrocodone Bitartrate/Apap 5/325 Tablet) 1 tablet PO Q4H PRN PRN PRN Reason: Pain Score 1-10 Last Admin: 08/20/20 09:28 Dose: 1 tablet Documented by: Diazepam (Diazepam 5 Mg Tablet) 5 mg PO Q6H PRN PRN PRN Reason: Muscle Spasms Enteral Nutritional Formula (Ensure Surgery 237 Ml Liquid) 237 ml PO TIDCM [facility] Last Admin: 08/20/20 09:28 Dose: Not Given Documented by: Famotidine (Famotidine 20 Mg Tablet) 20 mg PO BID [facility] Last Admin: 08/20/20 09:29 Dose: 20 mg Documented by: Sodium Chloride () 250 mls @ 15 mls/hr IV .[id number] PRN PRN Reason: Additional IVPB Infusion Lidocaine HCl (Lidocaine 2% Viscous 15 Ml Udc) 5 ml PO Q3H PRN PRN Reason: SORE THROAT Morphine Sulfate (Morphine 4 Mg/Ml Syringe) 2 - 4 mg IV Q2H PRN PRN PRN Reason: Pain Score 6-10 Last Admin: 08/20/20 06:39 Dose: 2 mg Documented by: Ondansetron HCl (Ondansetron 4 Mg/2 Ml Vial) 4 mg IV Q8H PRN PRN PRN Reason: NAUSEA Last Admin: 08/20/20 03:53 Dose: 4 mg Documented by: Senna/Docusate Sodium (Senna/Docusate Sodium 1 Tablet) 2 tablet PO BID [facility] Last Admin: 08/20/20 09:29 Dose: 2 tablet Documented by: Sodium Chloride (0.9% Saline Lock 10 Ml Syringe) 10 - 40 ml IV UD PRN PRN Reason: SALINE FLUSH Last Admin: 08/20/20 06:39 Dose: 20 ml Documented by: Throat Lozenges (Benzocaine/Menthol 1 Lozenge) 2 lozenge MUCOUS MEM Q2H PRN PRN PRN Reason: SORE THROAT Last Admin: 08/19/20 10:51 Dose: 2 lozenge Documented by: Zolpidem Tartrate (Zolpidem Tartrate 5 Mg Tablet) 5 mg PO QHS PRN PRN PRN Reason: INSOMNIA STROKE Vital Signs/Narrative: Vital Signs Temp Pulse Resp BP Pulse Ox 08/20/20 09:34 129 H 08/20/20 09:30 36.4 C L 128 H 18 132/83 H 98 Medical Necessity - Tobacco Use Smoking Status: Former smoker Tobacco Use: Non-smoker Assessment/Plan All Active Problems (Last Reviewed 08/18/20 @ 21:[address] Vasyl Shelton MD) Disc herniation (Acute) 1. GERD: PPI 2. s/p laminectomy L5-S1 with fusion: Mgmt per spine 3. Abdominal pain: unremarkable exam. will check abdominal xray to rule out ileus. supportive mgmt. Inpatient E&M: 90899 Subs Hosp L2
--- NOTE | 2020-08-20 13:45 | RAD_ITS ---
STUDY: X-RAY - ABDOMEN/PELVIS REASON FOR EXAM: Male, 30 years old. Abdominal distention. TECHNIQUE: AP supine and upright views of the abdomen and pelvis. COMPARISON: None. FINDINGS: Normal visualized lung bases. There is marked dilatation of the colon from the cecum to the rectum. There is mild gaseous distention of the distal small bowel. Paucity of rectal air. There is no demonstrated free abdominal air. The visualized liver, spleen and kidneys are grossly normal in size and morphology. There is a catheter in the right abdomen and pelvis. Question peritoneal dialysis catheter. There is surgical changes of the lower lumbar spine with overlying skin clips consistent with recent lumbar surgery. RAD/Abd Decub and/or Erect(Portabl IMPRESSION: 1. Dilatation of the colon and distal small bowel loops. There is a positive rectal air. Ileus versus, less likely, distal colonic obstruction. 2. Surgical changes of the lower lumbar spine 3. Catheter overlying the right pelvis. Electronically Signed: Bola Degroot DO at 16:49 EDT Tel [phone], Service support ,
[2020-08-20 14:06] VITALS: BP 137/89; PULSE 122; RESP 18; TEMP 36.6; O2SAT 98
[2020-08-20 21:21] VITALS: BP 158/73; PULSE 122; RESP 16; TEMP 37.3; O2SAT 96
--- NOTE | 2020-08-20 21:48 | NURSING ---
Scopolamine patch removed at this time.
[2020-08-21 01:23] VITALS: BP 120/68; PULSE 101; RESP 16; TEMP 37.1; O2SAT 95
[2020-08-21] MEDS: HYDROcodone Bitartrate/Apap 5/325 Tablet PO ×5 (01:26→21:31)
[2020-08-21] MEDS: 0.9% Saline Lock 10 ML Syringe IV (01:26)
[2020-08-21 05:47] VITALS: BP 139/76; PULSE 96; RESP 16; TEMP 37.1; O2SAT 96
[2020-08-21 07:42] VITALS: BP 126/77; PULSE 104; RESP 18; TEMP 37.1; O2SAT 98
[2020-08-21] MEDS: Senna/Docusate Sodium 1 Tablet 2 TABLET PO (07:45)
[2020-08-21] MEDS: Famotidine 20 MG Tablet PO ×2 (07:45→21:31)
--- NOTE | 2020-08-21 08:54 | PCM.PN.BLA ---
Progress Note Postop day #3: Patient complains of abdominal pain on the left side where his incision is. However he has good bowel sounds now has passed a lot of gas. His leg pain is completely gone. His back pain is quite tolerable. We will start feeding a regular diet today. Neurologically he is intact. His dressing was changed the drain was pulled incision is healing well. He was given directions regarding the care of the dressing when he gets home which will probably be tomorrow. We are checking to see if he can tolerate oral pain medicine only without the morphine. STROKE Vital Signs/Narrative: Vital Signs Temp Pulse Resp BP Pulse Ox 08/21/20 07:42 98.7 F 104 H 18 126/77 H 98 08/21/20 05:47 98.8 F 96 16 139/76 H 96
--- NOTE | 2020-08-21 09:06 | PN_ITS ---
Patient Problems: Active and Suspected Problems (Last Reviewed 08/18/20 @ 21:[address] Vasyl Shelton MD) Disc herniation (Acute) Subjective: Had a BM and copious flatulence. Tolerating clear diet. Vitals/I&O's: Vital Signs Temp Pulse Resp BP Pulse Ox 37.1 C 104 H 18 126/77 H 98 08/21/20 07:42 08/21/20 07:42 08/21/20 07:42 08/21/20 07:42 08/21/20 07:42 Oxygen Flow Rate (L/min) 6 Oxygen Delivery Method Room Air Weight: 91.7 kg Body Mass Index (BMI) 30.6 Intake and Output for Last 24 Hours 08/19/20 08/20/20 08/21/20 23:59 23:59 23:59 Intake Total 3405 / 3405 2200 / 2200 1500 / 1500 Output Total 3210 / 3210 1210 / 1210 0 / 0 Balance 195 / 195 990 / 990 1500 / 1500 General: Alert, No apparent distress HEENT: Atraumatic, Normocephalic Abdomen: Soft, Non Tender, Non-Distended Psych/Mental Status: Normal Affect, Appropriate Current Medications Hydrocodone Bitart/Acetaminophen (Hydrocodone Bitartrate/Apap 5/325 Tablet) 2 tablet PO Q4H PRN PRN PRN Reason: Pain Score 1-10 Diazepam (Diazepam 5 Mg Tablet) 5 mg PO Q6H PRN PRN PRN Reason: Muscle Spasms Enteral Nutritional Formula (Ensure Surgery 237 Ml Liquid) 237 ml PO TIDCM PENDING SALE TO [facility] Last Admin: 08/21/20 07:39 Dose: Not Given Documented by: Famotidine (Famotidine 20 Mg Tablet) 20 mg PO BID [facility]ENDING [facility] Last Admin: 08/21/20 07:45 Dose: 20 mg Documented by: Sodium Chloride () 250 mls @ 15 mls/hr IV .[id number] PRN PRN Reason: Additional IVPB Infusion Lidocaine HCl (Lidocaine 2% Viscous 15 Ml Udc) 5 ml PO Q3H PRN PRN Reason: SORE THROAT Morphine Sulfate (Morphine 4 Mg/Ml Syringe) 2 - 4 mg IV Q2H PRN PRN PRN Reason: Pain Score 6-10 Last Admin: 08/20/20 14:02 Dose: 2 mg Documented by: Ondansetron HCl (Ondansetron 4 Mg/2 Ml Vial) 4 mg IV Q8H PRN PRN PRN Reason: NAUSEA Last Admin: 08/20/20 03:53 Dose: 4 mg Documented by: Sodium Chloride (0.9% Saline Lock 10 Ml Syringe) 10 - 40 ml IV UD PRN PRN Reason: SALINE FLUSH Last Admin: 08/21/20 01:26 Dose: 10 ml Documented by: Throat Lozenges (Benzocaine/Menthol 1 Lozenge) 2 lozenge MUCOUS MEM Q2H PRN PRN PRN Reason: SORE THROAT Last Admin: 08/19/20 10:51 Dose: 2 lozenge Documented by: Zolpidem Tartrate (Zolpidem Tartrate 5 Mg Tablet) 5 mg PO QHS PRN PRN PRN Reason: INSOMNIA STROKE Vital Signs/Narrative: Vital Signs Temp Pulse Resp BP Pulse Ox 08/21/20 07:42 37.1 C 104 H 18 126/77 H 98 08/21/20 05:47 37.1 C 96 16 139/76 H 96 Medical Necessity - Tobacco Use Smoking Status: Former smoker Tobacco Use: Non-smoker Assessment/Plan All Active Problems (Last Reviewed 08/18/20 @ 21:[address] Vasyl Shelton MD) Disc herniation (Acute) 1. Ileus: resolved. advance diet. Hold Senokot 2. GERD: PPI 3. s/p laminectomy L5-S1 with fusion: Mgmt per spine If tolerates diet, medically stable for discharge. Inpatient E&M: 45921 Subs Hosp L2
[2020-08-21] MEDS: Ensure Surgery 237 ML LIQUID PO ×2 (11:59→16:49)
[2020-08-21 14:43] VITALS: BP 134/72; PULSE 99; RESP 16; TEMP 37.1; O2SAT 100
[2020-08-21 21:25] VITALS: BP 129/85; PULSE 82; RESP 16; TEMP 36.8; O2SAT 99
[2020-08-22 03:16] VITALS: BP 140/83; PULSE 87; RESP 16; TEMP 37.2; O2SAT 100
[2020-08-22] MEDS: HYDROcodone Bitartrate/Apap 5/325 Tablet PO ×3 (03:22→15:38)
[2020-08-22] MEDS: Famotidine 20 MG Tablet PO (08:53)
[2020-08-22 09:00] VITALS: BP 117/75; PULSE 86; RESP 16; TEMP 36.8; O2SAT 94
--- NOTE | 2020-08-22 11:22 | PCM.PN.HOSP ---
Patient Problems: Active and Suspected Problems (Last Reviewed 08/18/20 @ 21:[address] Vasyl Shelton MD) Disc herniation (Acute) Subjective: Still with flatus. Abdomen continues to feel better. Vitals/I&O's: Vital Signs Temp Pulse Resp BP Pulse Ox 36.8 C 86 16 117/75 94 08/22/20 09:00 08/22/20 09:00 08/22/20 09:00 08/22/20 09:00 08/22/20 09:00 Oxygen Flow Rate (L/min) 6 Oxygen Delivery Method Room Air Weight: 91.7 kg Body Mass Index (BMI) 30.6 Intake and Output for Last 24 Hours 08/20/20 08/21/20 08/22/20 23:59 23:59 23:59 Intake Total 2200 / 2200 2600 / 2600 Output Total 1210 / 1210 0 / 0 Balance 990 / 990 2600 / 2600 General: Alert, No apparent distress HEENT: Atraumatic, Normocephalic Abdomen: Soft, Non Tender, Non-Distended Current Medications Hydrocodone Bitart/Acetaminophen (Hydrocodone Bitartrate/Apap 5/325 Tablet) 2 tablet PO Q4H PRN PRN PRN Reason: Pain Score 1-10 Last Admin: 08/22/20 08:53 Dose: 2 tablet Documented by: Diazepam (Diazepam 5 Mg Tablet) 5 mg PO Q6H PRN PRN PRN Reason: Muscle Spasms Enteral Nutritional Formula (Ensure Surgery 237 Ml Liquid) 237 ml PO TIDCM [facility] Last Admin: 08/22/20 08:55 Dose: Not Given Documented by: Famotidine (Famotidine 20 Mg Tablet) 20 mg PO BID [facility] Last Admin: 08/22/20 08:53 Dose: 20 mg Documented by: Sodium Chloride () 250 mls @ 15 mls/hr IV .[id number] PRN PRN Reason: Additional IVPB Infusion Lidocaine HCl (Lidocaine 2% Viscous 15 Ml Udc) 5 ml PO Q3H PRN PRN Reason: SORE THROAT Morphine Sulfate (Morphine 4 Mg/Ml Syringe) 2 - 4 mg IV Q2H PRN PRN PRN Reason: Pain Score 6-10 Last Admin: 08/20/20 14:02 Dose: 2 mg Documented by: Ondansetron HCl (Ondansetron 4 Mg/2 Ml Vial) 4 mg IV Q8H PRN PRN PRN Reason: NAUSEA Last Admin: 08/20/20 03:53 Dose: 4 mg Documented by: Sodium Chloride (0.9% Saline Lock 10 Ml Syringe) 10 - 40 ml IV UD PRN PRN Reason: SALINE FLUSH Last Admin: 08/21/20 01:26 Dose: 10 ml Documented by: Throat Lozenges (Benzocaine/Menthol 1 Lozenge) 2 lozenge MUCOUS MEM Q2H PRN PRN PRN Reason: SORE THROAT Last Admin: 08/19/20 10:51 Dose: 2 lozenge Documented by: Zolpidem Tartrate (Zolpidem Tartrate 5 Mg Tablet) 5 mg PO QHS PRN PRN PRN Reason: INSOMNIA STROKE Vital Signs/Narrative: Vital Signs Temp Pulse Resp BP Pulse Ox 08/22/20 09:00 36.8 C 86 16 117/75 94 Medical Necessity - Tobacco Use Smoking Status: Former smoker Tobacco Use: Non-smoker Assessment/Plan All Active Problems (Last Reviewed 08/18/20 @ 21:[address] Vasyl Shelton MD) Disc herniation (Acute) 1. Ileus: resolved. advance diet. Hold Senokot 2. GERD: PPI 3. s/p laminectomy L5-S1 with fusion: Mgmt per spine Medically stable for discharge. Will sign off. Please do not hesitate to call if questions. Inpatient E&M: [id number] Subs Hosp L1
--- NOTE | 2020-08-22 15:17 | PCM.PN.BLA ---
Progress Note Ramon was seen on rounds. He is much better than he was yesterday. His leg pain is all gone he feels a lot better and is having no difficulty ambulating at this point even without a walker. I removed the anterior dressing and the incision is healing well I left it off altogether. The posterior dressing is dry and healing well. He is neurologically intact. Given directions regarding his activities at home he was told that he could shower on Monday after he takes his rear dressing off on Monday. Is not to put any lotions or other medications on the wounds. He already has his pain medicine at home that I called in for him prior to surgery. Was told to follow-up in my office next Monday.
--- NOTE | 2020-08-22 15:29 | DS.PCM_ITS ---
Discharge Summary Date of Admission: 08/18/20 Date of Discharge: 08/22/20 Patient Problems: Active and Suspected Problems (Last Reviewed 08/18/20 @ 21:[address] Vasyl Shelton MD) Disc herniation (Acute) - Physical Exam Vitals/I&O's: Vital Signs Temp Pulse Resp BP Pulse Ox 98.2 F 86 16 117/75 94 08/22/20 09:00 08/22/20 09:00 08/22/20 09:00 08/22/20 09:00 08/22/20 09:00 Oxygen Flow Rate (L/min) 6 Oxygen Delivery Method Room Air Weight: 202 lb 2.622 oz Body Mass Index (BMI) 30.6 Intake and Output for Last 24 Hours 08/20/20 08/21/20 08/22/20 23:59 23:59 23:59 Intake Total 2200 / 2200 2600 / 2600 Output Total 1210 / 1210 0 / 0 Balance 990 / 990 2600 / 2600 Current Medications Hydrocodone Bitart/Acetaminophen (Hydrocodone Bitartrate/Apap 5/325 Tablet) 2 tablet PO Q4H PRN PRN PRN Reason: Pain Score 1-10 Last Admin: 08/22/20 08:53 Dose: 2 tablet Documented by: Diazepam (Diazepam 5 Mg Tablet) 5 mg PO Q6H PRN PRN PRN Reason: Muscle Spasms Enteral Nutritional Formula (Ensure Surgery 237 Ml Liquid) 237 ml PO TIDCM [facility] Last Admin: 08/22/20 13:38 Dose: Not Given Documented by: Famotidine (Famotidine 20 Mg Tablet) 20 mg PO BID [facility] Last Admin: 08/22/20 08:53 Dose: 20 mg Documented by: Sodium Chloride () 250 mls @ 15 mls/hr IV .[id number] PRN PRN Reason: Additional IVPB Infusion Lidocaine HCl (Lidocaine 2% Viscous 15 Ml Udc) 5 ml PO Q3H PRN PRN Reason: SORE THROAT Morphine Sulfate (Morphine 4 Mg/Ml Syringe) 2 - 4 mg IV Q2H PRN PRN PRN Reason: Pain Score 6-10 Last Admin: 08/20/20 14:02 Dose: 2 mg Documented by: Ondansetron HCl (Ondansetron 4 Mg/2 Ml Vial) 4 mg IV Q8H PRN PRN PRN Reason: NAUSEA Last Admin: 08/20/20 03:53 Dose: 4 mg Documented by: Sodium Chloride (0.9% Saline Lock 10 Ml Syringe) 10 - 40 ml IV UD PRN PRN Reason: SALINE FLUSH Last Admin: 08/21/20 01:26 Dose: 10 ml Documented by: Throat Lozenges (Benzocaine/Menthol 1 Lozenge) 2 lozenge MUCOUS MEM Q2H PRN PRN PRN Reason: SORE THROAT Last Admin: 08/19/20 10:51 Dose: 2 lozenge Documented by: Zolpidem Tartrate (Zolpidem Tartrate 5 Mg Tablet) 5 mg PO QHS PRN PRN PRN Reason: INSOMNIA
[2020-08-22 15:30] VITALS: BP 122/79; PULSE 91; RESP 16; TEMP 36.6; O2SAT 93
== END 2020-08-22 16:25 | disposition home or self-care (01) | DRG 460 ==
LOC: ACINP 09:25 → MS3 15:15
PROVIDERS: Anesthesiology; Admitting Provider Orthopaedic Surgery; PCP Family Medicine; Referring Provider Orthopaedic Surgery
DX: M51.17 Intervertebral disc disorders with radiculopathy, lumbosacral region (principal); K56.7 Ileus, unspecified; M51.26 Other intervertebral disc displacement, lumbar region; K21.9 Gastro-esophageal reflux disease without esophagitis; Z83.3 Family history of diabetes mellitus; Z87.891 Personal history of nicotine dependence; Z90.49 Acquired absence of other specified parts of digestive tract
CPT/HCPCS: 36415; 72020; 74019; 76000; 80048; 82962; 83735; 85025; 86703; 86704; 86705; 86706; 86708; 86709; 86803; 86850; 86900; 86901; 87081; 87340; 87635; 93005; 99251; C1713; C9803; J7120; A4216; G0463; J2405; U0003